=== PATIENT | female | born 1990 | race Caucasian/White ===

== ENCOUNTER → 2018-02-24 | Outpatient (CLI) | payer OTHER | LOC: FIMAGING 07:24 | PROVIDERS: ATTEND Obstetrics & Gynecology | DX: O09.892 Supervision of other high risk pregnancies, second trimester (principal); O99.344 Other mental disorders complicating childbirth; O99.712 Diseases of the skin and subcutaneous tissue complicating pregnancy, second trimester; Z3A.19 19 weeks gestation of pregnancy; Z79.891 Long term (current) use of opiate analgesic ==